=== PATIENT | male | born 1975 | race Hispanic/Latino ===

== ENCOUNTER 2024-04-24 08:32 | Outpatient (CLI) | payer OTHER | END 2024-04-24 08:33 | disposition home or self-care (01) | LOC: BICULT 08:32 | PROVIDERS: ATTEND Family Medicine | DX: R10.11 Right upper quadrant pain (principal) | CPT/HCPCS: 76700 ==

== ENCOUNTER 2025-06-05 15:09 | Emergency (ER) | payer OTHER ==
[~2025-06-05 15:09] MED LIST: Iopamidol 370 76% 100 ML VIAL ONE
[2025-06-05 16:59] LABS: #Basophils 0.03 10x3/uL (0.0-0.2); #Eosinophils 0.03 10x3/uL (0.0-0.7); #Monocytes 0.65 10x3/uL (0.11-0.59); #Neutrophils 4.11 10x3/uL (1.40-6.50); %Basophils 0.5 % (0.0-1.0); %Eosinophils 0.5 % (0.0-10.0); %Lymphocytes 20.6 % (21.0-51.0); %Monocytes 10.7 % (0.0-10.0); %Neutrophils 67.5 % (42.0-75.0); Hematocrit 48.9 % (42.0-52.0); Hemoglobin 17.1 g/dL (14.0-18.0); Mean Corpuscular Hemoglobin 31.0 pg (27.0-31.0); Mean Corpuscular Volume 88.6 fL (78.0-98.0); Platelet Count 214 10x3/uL (130-400); Red Blood Cell (RBC) Count 5.52 mill/uL (4.70-6.10); White Blood Cell (WBC) Count 6.08 10x3/uL (4.8-10.8)
[2025-06-05 17:22] LABS: ALT (SGPT) 28 U/L (Less than 45); AST (SGOT) 29 U/L (11-34); Albumin 4.8 g/dL (3.1-4.5); Alkaline Phosphatase 85 U/L (40-110); Anion Gap 13 mmol/L (10-20); BUN (Urea Nitrogen) 13 mg/dL (8.9-20.6); Bilirubin, Total 0.8 mg/dL (0.3-1.2); Calc. Creatinine Clearance 0 mL/min (70-130); Calcium 9.5 mg/dL (7.8-10.44); Carbon Dioxide 27 mmol/L (22-29); Chloride 104 mmol/L (98-107); Globulin 3.2 g/dL (2.4-3.5); Glucose 104 mg/dL (70-105); Potassium 3.8 mmol/L (3.5-5.1); Sodium 140 mmol/L (136-145)
[2025-06-05 17:23] LABS: Troponin I Less than 0.010 ng/mL (< 0.028)
[2025-06-05 17:29] LABS: INR-International Normal Ratio 1.0; PTT 27.6 sec (22.9-36.1); Prothrombin Time 13.4 sec (12.0-14.7)
== END 2025-06-05 19:47 | disposition home or self-care (01) ==
LOC: ERS 15:09
DX: R42 Dizziness and giddiness (principal); R29.700 NIHSS score 0; Z55.6 Problems related to health literacy; Z75.8 Other problems related to medical facilities and other health care
CPT/HCPCS: 70496; 80053; 84484; 85025; 85610; 85730; 93005; Q9967